=== PATIENT | female | born 1980 | race Caucasian/White ===

== ENCOUNTER 2019-09-18 07:04 | Emergency (ER) | payer BC, SELFPAY ==
[2019-09-18 07:08] VITALS: BP 166/114; PULSE 116; RESP 16; TEMP 36.9; O2SAT 98; BMI 37.1
--- NOTE | 2019-09-18 07:17 | W.ED.GENADLT ---
HPI - General Adult General: Chief complaint: Fever Stated complaint: ACHES, CHILLS Time Seen by Provider: 09/18/19 07:07 History of Present Illness: HPI narrative: Patient complains of chills muscle aches and a fever since yesterday. She works at a daycare. Her boss wants her to get checked for the flu. Patient did take ibuprofen last night. MD complaint: flu Onset (ago): day(s) (1) Associated symptoms: Reports cough and fevers/chills; Deny chest pain, dyspnea, headache(s), nausea, rash or vomiting Review of Systems Narrative: Patient states her blood pressure goes up when she gets nervous or gets sick but generally it does okay. Const: Reports: fever, chills and body aches Eyes: Denies: change in vision or blurry vision ENMT: Denies: throat pain or nasal congestion Card: Denies: chest pain or shortness of breath on exertion Resp: Reports: non-productive cough; Denies: shortness of breath or productive cough GI: Denies: abdominal pain, nausea or vomiting Musc: Denies: extremity pain Skin/Breast: Denies: rash Neuro: Denies: headache Psych: Denies: anxiety or depression Ricki/Lymph: Denies: easy bruising PFSH ED PFSH: Social History Smoking and tobacco status: never smoked Female Reproductive History: Date of last menstrual period: 09/18/19 Physical Exam Const: COMMON NORMALS: no apparent distress, average body habitus and oriented x3 HENMT: COMMON NORMALS: normocephalic HEAD & SCALP: normal to inspection and normocephalic FACE & SINUS: normal facial exam Eye: COMMON NORMALS: conjunctivae normal GENERAL EYE: normal appearance of both eyes CONJUNCTIVA: Yes conjunctivae normal Neck/C-Spine: COMMON NORMALS: no JVD Chest: COMMONS NORMALS: inspection of chest normal Resp: COMMON NORMALS: normal respiratory effort and clear to auscultation bilaterally AUSCULTATION: clear to auscultation bilaterally Cardio: COMMON NORMALS: no JVD, regular rate and regular rhythm RATE: regular rate RHYTHM: regular rhythm GI: COMMON NORMALS: normal to inspection, nondistended, normoactive bowel sounds Extremity: COMMON NORMALS: normal to inspection and full ROM Neuro: COMMON NORMALS: oriented x3 Course Vital Signs: Vital signs: Vital Signs Temperature 98.4 F 09/18/19 07:08 Pulse Rate 116 H 09/18/19 07:08 Respiratory Rate 16 09/18/19 07:08 Blood Pressure 166/114 09/18/19 07:08 Pulse Oximetry 98 09/18/19 07:08 MDM - General Adult MDM Narrative: Medical decision making narrative: Patient has high blood pressure here in the ER. Patient relates anytime she gets nervous that her heart rate and blood pressure goes up that is happening for years. She does check her blood pressure occasionally and it is up only when she is nervous she says. She has a family history of her grandparents both have high blood pressure. She is overweight. We did discuss the need to check blood pressure regularly and get back to her primary care provider and see if she needs to be on hypertensive medication. I did ask her to increase fluids and stay away from the daycare for least a day because she is positive with a viral infection. Lab Data: Labs: Lab Results 09/18/19 Range/Units 07:10 Influenza Type A A g Negative (Negative) POC Influenza B Ag Negative (Negative) Discharge Plan Discharge Patient Disposition: Home, Self-Care Clinical Impression: Viral infection HTN (hypertension) Qualifiers: Hypertension type: essential hypertension Qualified Code(s): I10 - Essential (primary) hypertension Condition: Stable Discharge Orders: Discharge Order (Routine); Ordered 09/18/19 Ordered By: Shaun Phillips Discharge Diet: Usual diet Discharge Activity: Increase activity as tolerated Patient Instructions: Influenza (ED), Chronic Hypertension (ED) Activity Restrictions/Additional Instructions: Follow-up with medical provider as directed. Can use Tylenol or ibuprofen for fever and body aches return to the ER or your medical provider if condition worsens. Please read and understand discharge instructions. If any questions ask please. Important that you check your blood pressure twice a day and write those readings down and take those to your primary care provider in 1 to 2 weeks. Drink plenty of fluids Coding Level of Care Code ED Pigs Feet Finisher for Chg Fwd Exam Comprehensive
[2019-09-18 07:51] LABS: Influenza A by IFA Negative (Negative); Influenza B by IFA Negative (Negative)
== END 2019-09-18 08:13 | disposition home or self-care (01) ==
PROVIDERS: Emergency Provider Nurse Practitioner Family
DX: B34.9 Viral infection, unspecified (principal); I10 Essential (primary) hypertension
CPT/HCPCS: 87804; 99281; 99282

== ENCOUNTER → 2022-08-01 11:45 | Outpatient (BNVA) | payer BC, SELFPAY | PROVIDERS: PCP Clinical Nurse Specialist Adult Health; Visit Provider Clinical Nurse Specialist Adult Health | DX: I10 Essential (primary) hypertension (principal) | CPT/HCPCS: 80053; 80061; 85025 ==

== ENCOUNTER → 2022-08-06 07:47 | Outpatient (BNVA) | payer BC, SELFPAY | PROVIDERS: PCP Clinical Nurse Specialist Adult Health; Visit Provider Clinical Nurse Specialist Adult Health | DX: D50.9 Iron deficiency anemia, unspecified (principal); I10 Essential (primary) hypertension | CPT/HCPCS: 82607; 82728; 82746; 83550; 84466 ==

== ENCOUNTER → 2023-09-07 10:25 | Outpatient (BNVA) | payer BC, SELFPAY | PROVIDERS: PCP Clinical Nurse Specialist Adult Health; Visit Provider Clinical Nurse Specialist Adult Health | DX: I10 Essential (primary) hypertension (principal); D50.9 Iron deficiency anemia, unspecified; D50.8 Other iron deficiency anemias | CPT/HCPCS: 80053; 80061; 83540; 84443; 85025 ==